=== PATIENT | male | born 1990 | race Caucasian/White ===

== ENCOUNTER 2022-06-09 23:16 | Emergency (ER) | payer OTHER ==
[~2022-06-09] VITALS: Ht 182.9 cm; Wt 97.7 kg
[2022-06-09 23:49] VITALS: BP 136/87
[2022-06-10 00:05] LABS: Basophils # (auto) 0 10 ^3/uL (0-0.2); Basophils % (auto) 0.3 % (0.0-2.0); Hematocrit 46.4 % (41.0-53.0); Hemoglobin 16.2 g/dL (13.5-17.5); Mean Corpuscular Hemoglobin 31.2 pg (28.0-32.0); Monocytes # (auto) 0.7 10 ^3/uL (0-1.3); Monocytes % (auto) 7.8 % (0.0-12.0)
[2022-06-10 00:08] LABS: Albumin 3.8 g/dL (3.4-5.0); Calcium 9.4 mg/dL (8.5-10.1); Eosinophils # (auto) 0 10 ^3/uL (0-0.8); Eosinophils % (auto) 0.5 % (0.0-7.0); Lymphocytes # (auto) 0.5 10 ^3/uL (0.4-5.4); Lymphocytes % (auto) 5.9 % (10.0-50.0); Mean Corpuscular Hgb Conc. 34.9 g/dL (32.0-36.0); Mean Corpuscular Volume 89.3 fL (80.0-100.0); Neutrophils # (auto) 7.7 10 ^3/uL (1.6-8.6); Neutrophils % (auto) 85.5 % (37.0-80.0); Potassium 4.1 mmol/L (3.5-5.1); Red Cell Distribution Width 13.3 % (11.8-14.3)
[2022-06-10 00:11] LABS: Bilirubin, Total 0.4 mg/dL (0.2-1.0); Total Protein 8.3 g/dL (6.4-8.2)
[2022-06-10] MEDS ORDERED: CIPR-173 PO (00:57)
[2022-06-10] MEDS ORDERED: ONDA-144 PO (00:57)
[2022-06-10] MEDS ORDERED: PERCOT PO (00:57)
== END 2022-06-10 01:15 | disposition home or self-care (01) ==
LOC: ER 23:16
DX: R10.9 Unspecified abdominal pain (principal); R30.0 Dysuria
CPT/HCPCS: 36415; 74176; 80053; 83690; 85025